=== PATIENT | female | born 1980 | race Caucasian/White ===

== ENCOUNTER 2017-01-29 20:17 | Emergency (ER) | payer MEDICAID ==
[2017-01-29 20:24] VITALS: BP 140/113
--- NOTE | 2017-01-29 20:48 | ERNOTE ---
Medical Problem HPI - Narrative Date of Service: 01/29/17 - General Chief Complaint: General Assessment Time Seen by Provider: 01/29/17 20:40 Source: patient Exam Limitations: no limitations - Immun/Allergies/Home Medications Immunizations: IMMUNIZATION HX Immunizations Up to Date Yes History of Influenza Vaccine No Hx Pneumococcal Vaccination No Allergies/Adverse Reactions: Allergies penicillin G Allergy (Intermediate, Verified 01/29/17 20:24) Hives Sulfa (Sulfonamide Antibiotics) Allergy (Intermediate, Verified 01/29/17 20:24) Hives codeine Adverse Reaction (Mild, Verified 01/29/17 20:24) Vomiting hydrocodone bitartrate [From Vicodin] Adverse Reaction (Mild, Verified 01/29/17 20:24) N/V Home Medications: HOME MEDICATIONS NK [No Home Medication] 01/29/17 [Last Taken Unknown] - History of Present History Narrative: 37-year-old female presents to the emergency room for a lump in her left breast. History of a lump in her right breast that she said she had removed many years ago. Date (Duration): 01/29/17 Timing: unsure Review of Systems - Review of Systems Constitutional: Present: no symptoms reported EYE: Present: no symptoms reported ENT: Present: no symptoms reported Respiratory: Present: no symptoms reported Cardiology: Present: no symptoms reported Gastrointestinal/Abdominal: Present: no symptoms reported Genitourinary: Present: no symptoms reported Musculoskeletal: Present: no symptoms reported Skin: Present: See HPI Neurological: Present: no symptoms reported Endocrine: Present: no symptoms reported Hematologic/Lymphatic: Present: no symptoms reported Psych: Present: no symptoms reported All Other Systems: All systems neg except as marked - Patient's Past Medical History Patient History - Medical: No pertinent hx Patient History - Cardiac/Respiratory: No pertinent hx Patient History - Cancer: Cervical Patient History - Surgical Procedures: Hysterectomy, T & A Patient History - Other: None - Social History Living Situations: significant other Psych History: No pertinent hx Smoking Status: Current every day smoker Alcohol Use: none Drug Use: none - Immunizations Immunizations Up to Date: Yes Hx Pneumococcal Vaccination: No History of Influenza Vaccine: No Physical Exam - Physical Exam Narrative: Lump Located about the 9 o'clock position on left breast. Measuring about 1-1/ 2 cm. It is soft and pliable no pain. No redness OR tenderness with manipulation. right breast WNL General Appearance: Present: wd/wn, alert, no apparent distress Eye Exam: Normal inspection: bilateral Ears, Nose, Throat: Present: normal ENT inspection, normal pharynx Neck: Present: normal inspection, nontender Respiratory: Present: no respiratory distress, normal breath sounds, no accessory muscle use, chest nontender, lungs clear. Absent: chest tenderness Cardiovascular/Chest: Present: regular rate, rhythm, no murmur, normal peripheral pulses Gastrointestinal/Abdominal: Present: normal bowel sounds, nontender, nondistended, soft, no organomegaly Back Exam: Present: normal inspection, normal range of motion, no CVA tenderness , no vertebral tenderness Extremity Exam: Present: normal inspection, non-tender, normal range of motion, no edema Neurological Exam: Present: alert, oriented, normal mood/affect, no motor/ sensory deficits Skin Exam: Present: normal color, warm/dry Lymphatic Exam: Present: no adenopathy ED Progress - Vital Signs Patient's Vital Signs:: I have reviewed the patient's vital signs. Vital Signs: Vital Signs 01/29/17 20:18 Temperature 36.7 C Pulse Rate 102 H Respiratory 18 Rate Blood Pressure 140/113 O2 Sat by Pulse 98 Oximetry - Progress/Reassessment Chief Complaint: General Assessment Progress:: Unchanged Plan - Plan Plan: She is to follow-up with her [employer] on Monday Departure - Departure Clinical Impression: Breast lump in female Disposition: Home Follow Up Needed Condition: Stable Instructions: Breast Self-Awareness, [id number] Additional Instructions: Continue any previous home medications as directed. Follow-up with your [employer] on Monday related to the lump in her left breast.
--- OUTSIDE RECORDS SUMMARY | 2017-01-29 20:56 | XMS REPORT | Continuity of Care Document ---
:1980 Author Organization [facility] ([facility]) Address [address] [place] [address] Phone [phone] Care Team Providers Name Role Phone Celestina Daniels Primary Care Provider [phone] Source Comments This disclosure is being made pursuant to the Care Everywhere program, applicable federal and state laws, and may not contain all informaitonavailable regarding this patient.[facility] ([facility]) Active Allergies and Adverse Reactions Allergen Noted Date Severity Reactions Comments Codeine 10/25/2009 Rash Penicillins 10/25/2009 Rash Sulfa (Sulfonamide Antibiotics) 10/25/2009 Rash Current Medications Prescription Sig. Disp. Refills Start Date End Date Status famotidine (PEPCID) 20 take 1 Tab by mouth 40 Tab 2 10/25/2009 Active mg tablet 2 times daily. 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[employer] Temperature 36.1 C (97 F) 10/25/2009 11:30 AM [employer]INE SERVICE OPERATOR Respiratory Rate 20 10/25/2009 8:30 AM [employer]INE SERV[employer] OPERATOR Height - - Weight - - Body Mass Index - - Oxygen Saturation - - Plan of Care Health Maintenance Due Date Last Done Comments Hepatitis B Vaccine (1 of 3 - Primary Series) 1982 Tdap Vaccine 1993 Lipid Disorder Screening 01/26/2000 MMR Vaccine 01/26/2000 Td Vaccine 01/26/2000 Varicella Vaccine (1 of 2 - Adult - No Evidence of 01/26/2000 Immunity) Pneumococcal Vaccine (1 of 1 - PPSV23) 2001 Cervical Cancer Screening 01/26/2012 Influenza Vaccine: Seasonal Completed Results from Last 3 Months Not on file
== END 2017-01-29 20:45 | disposition home or self-care (01) ==
LOC: ER 20:17
DX: N63 Unspecified lump in breast (principal); Z85.41 Personal history of malignant neoplasm of cervix uteri; F17.200 Nicotine dependence, unspecified, uncomplicated

== ENCOUNTER 2017-02-10 10:04 | Day surgery (SDC) | payer MEDICAID ==
[~2017-02-10 10:04] MED LIST: ACETAMINOPHEN 500 MG TABLET PO PRN; MAG HYDROX/ALUMINUM HYD/SIMETH 30 ML UDC PO PRN; MAGNESIUM HYDROXIDE 30 ML UDC PO PRN; ONDANSETRON HCL/PF 2 MG/ML VIAL IV PRN; PROMETHAZINE HCL 25 MG in DEXTROSE 5 % IN WATER 50 ML IV PRN; RINGERS SOLUTION,LACTATED 1,000 ML IV PRN; ROPIVACAINE HCL/PF 40 MG in NORMAL SALINE 16 ML IJ PRN; ZOLPIDEM TARTRATE 5 MG TABLET PO PRN; ceFAZolin SODIUM 1 GM VIAL IV PRN; diphenhydrAMINE HCL 50 MG/ML VIAL IV PRN; oxyCODONE HCL/ACETAMINOPHEN 1 TAB TABLET PO PRN
[2017-02-10] MEDS ORDERED: RINGERS SOLUTION,LACTATED 1,000 ML IV ONE (10:54)
[2017-02-10] MEDS ORDERED: BUPIVACAINE HCL/EPINEPHRINE 50 ML VIAL IJ ONE ×2 (12:35)
--- NOTE | 2017-02-10 13:13 | OR ---
Operative Report - Dictated Report Narrative: Date: 02/10/2017 Physician: Lisandro Vazquez M.D. Sewer System Supervisor: Tom Polanco PA-C Preoperative diagnosis: Right Knee patella osteochondral injury Postoperative diagnosis: Right Knee patella osteochondral injury, anterior medial plica Procedure: Right knee arthroscopy with microfracture of patella, excision of anterior medial plica Anesthesia: Gen. Plus local Complications: None Estimated blood loss: Minimal Tourniquet time: None Specimens: None Retained implants: None Drains: None Indications: Mrs. Merritt Is a 37 year-old female who has been followed in my clinic with complaints of knee pain consistent with suspected patella chondral pathology. Physical exam and diagnostic imaging were consistent with these complaints and concern for patella chondral injury pathology. Conservative measures have failed including, but not limited to, passage of time, activity modification, medications, and injections. The risks, benefits, and alternatives were discussed in clinic. The risks being , bleeding, infection, blood clots, nerve, tendon, ligament, blood vessel injury, persistent pain, arthrosis, need for additional procedures, and persistent symptoms. Consent was obtained in the clinic. Procedure: After marking the correct extremity in the preoperative holding area, a timeout was performed in the operating room. IV antibiotics consisting of Ancef were administered prior to the procedure. A well-padded tourniquet was applied to the operative upper thigh. The leg was prepped and draped in a standard sterile fashion. 0.5% Marcaine with epinephrine was infused into the projected portal sites as well as the intra-articular space. A madison incision was made for inferior lateral portal. A blunt trocar and cannula was introduced into the knee. The suprapatellar pouch revealed no pathology. The medial patella facet showed minimal arthrosis. The lateral patella facet showed a 1 cm focal defect at the apex of the patella consistent with her MRI. The trochlea showed no significant arthrosis. The medial gutter revealed a thick abrading anterior medial plica. The medial joint space was then entered utilizing a lateral post and valgus stress. A spinal needle was utilized for guidance into placement of an anterior medial portal. This was placed just superior to the medial meniscus ensuring that we could reach the posterior aspect of the medial joint space. A madison incision was made in the site, and the probe was introduced to the knee. The medial joint space was examined, and the medial femoral condyle showed no arthrosis. The medial tibial plateau showed no arthrosis. The medial meniscus no tear. The notch was then examined, and the ACL was noted to be intact. The PCL was noted to be intact. The lateral joint space was then examined using a varus force in the figure 4 position. Lateral femoral condyle showed no arthrosis. Lateral tibial plateau showed no arthrosis. The lateral meniscus showed no tear. The lateral gutter showed no pathology. Having identified the surgical pathology, a shaver was utilized in order to debride the anterior medial plica. Accessory medial portal was placed in order to use ring curettes to debride the loose chondral edges of the patella. This was down to stable margin. A microfracture awl was attempted to be utilized however due to the density of the bone this was not possible and thus a 0.62 smooth Indigo wire was utilized in order to make the microfracture holes and the patella. After this was performed there was noted blood and fat ingress from the microfracture holes. Once it was felt that we adequately addressed the pathology, the knee was thoroughly irrigated. The fluid was evacuated ensuring that we have removed all meniscal, chondral, and any other loose bodies. A final evaluation of the joint showed no additional pathology. The fluid was then evacuated of the knee, and the trocar and camera were removed from the joint. The wounds were closed with interrupted nylon after placing 20 mL of 0.2% ropivacaine into the joint. Dressings consisting of Xeroform, 4 x 4 , ABD, soft roll, and an Casey were applied. A knee immobilizer was then placed. All sponge, needle, blade, and instrument counts were correct prior to closing the wounds. The patient was awoken and transferred to the postanesthesia care unit in stable condition.
[2017-02-10 14:59] VITALS: BP 109/66
[2017-02-10] MEDS ORDERED: SENNOSIDES/DOCUSATE SODIUM 1 TAB TABLET PO SCH (21:00)
== END 2017-02-10 10:05 | disposition home or self-care (01) ==
LOC: AMB 10:04
PROVIDERS: ATTEND Orthopaedic Surgery
PROC: 0SQC4ZZ Repair Right Knee Joint, Percutaneous Endoscopic Approach (ICD-10-PCS; principal; 2017-02-10 12:45)
DX: M23.91 Unspecified internal derangement of right knee (principal); M94.261 Chondromalacia, right knee; I10 Essential (primary) hypertension; J45.909 Unspecified asthma, uncomplicated; K21.9 Gastro-esophageal reflux disease without esophagitis; F41.9 Anxiety disorder, unspecified; E66.01 Morbid (severe) obesity due to excess calories; Z68.35 Body mass index [BMI] 35.0-35.9, adult; F17.200 Nicotine dependence, unspecified, uncomplicated

== ENCOUNTER 2017-05-01 23:22 | Emergency (ER) | payer MEDICAID ==
--- NOTE | 2017-05-02 00:13 | ERNOTE ---
Lower Extremity HPI - General Lower Extremities Pain: knee: right Time Seen by Provider: 05/01/17 23:57 Source: patient Exam Limitations: no limitations - Immun/Allergies/Home Medications Immunizations: IMMUNIZATION HX Immunizations Up to Date Yes History of Influenza Vaccine No Hx Pneumococcal Vaccination No Allergies/Adverse Reactions: Allergies Allergy/AdvReac Type Severity Reaction Status Date / Time penicillin G Allergy Mild Hives Verified 02/10/17 10:23 Sulfa (Sulfonamide Allergy Mild Hives Verified 02/10/17 10:23 Antibiotics) codeine AdvReac Mild Vomiting Verified 02/10/17 10:23 hydrocodone bitartrate AdvReac Mild N/V Verified 02/10/17 10:23 [From Vicodin] Home Medications: HOME MEDICATIONS Ibuprofen [Motrin] 800 mg PO TID PRN 02/02/17 [Last Taken Unknown] oxyCODONE HCL/ACETAMINOPHEN [Percocet 5 MG/325 MG] 1 - 2 tab PO Q4H PRN #30 tab 02/10/17 [Last Taken Unknown] - History of Present Illness Narrative: Pt states she had a procedure on her patella and knee 2 months ago (02/10) and has had problems since. Five days ago she slipped getting out of the shower and has had increased swelling and pain since. Occurred: last week Location of Incident: home Method of Injury: Reports: twisted Reason for Fall: Reports: slipped Loss of Consciousness: Reports: no loss of consciousness Modifying Factors - (Worsens): Reports: movement Other Injuries: Reports: none Review of Systems - Review of Systems Constitutional: Present: no symptoms reported EYE: Present: no symptoms reported ENT: Present: no symptoms reported Respiratory: Present: no symptoms reported Cardiology: Present: no symptoms reported Gastrointestinal/Abdominal: Present: no symptoms reported Musculoskeletal: Present: See HPI. Absent: back pain Skin: Absent: rash, change in color Neurological: Absent: numbness, tingling Endocrine: Present: no symptoms reported Hematologic/Lymphatic: Present: no symptoms reported Psych: Present: no symptoms reported - Patient's Past Medical History Patient History - Medical: Anemia, Anxiety, GERD, Other Patient History - Cardiac/Respiratory: Hypertension, Other Patient History - Cancer: No Hx of Cancer Patient History - Surgical Procedures: D & C, Ear Tubes, Hysterectomy, T & A, Other - Knee arthroscopy Patient History - Other: None - Family History Father Family History - Medical: No pertinent hx Family History - Cardiac/Respiratory: Other Family History - Cancer: No pertinent family hx Mother Family History - Medical: No pertinent hx Family History - Cardiac/Respiratory: No pertinent hx Family History - Cancer: Breast Grandmother-Maternal Family History - Medical: Diabetes Type 2 Family History - Cardiac/Respiratory: No pertinent hx Family History - Cancer: No pertinent family hx - Social History Living Situations: home Abuse History: No History of abuse Psych History: Hx of Anxiety, Hx of Depression Smoking Status: Current every day smoker Patient requests Smoking Cessation Consult: No Initiate information on Smoking Cessation: No Alcohol Use: none Drug Use: other - Immunizations Immunizations Up to Date: Yes Hx Pneumococcal Vaccination: No History of Influenza Vaccine: No Physical Exam - Physical Exam General Appearance: Present: wd/wn, alert, no apparent distress Head Exam: Present: normal inspection, no evidence of injury Extremity Exam: Present: joint swelling - right knee mild-moderate. Patella is difficult to palpate. Absent: calf tenderness, bony tenderness, joint redness Neurological Exam: Present: alert, oriented, normal mood/affect Skin Exam: Present: normal color, warm/dry ED Progress - Vital Signs Patient's Vital Signs:: I have reviewed the patient's vital signs. Vital Signs: Vital Signs 05/01/17 23:27 Temperature 36.8 C Pulse Rate 120 H Respiratory 20 Rate Blood Pressure 140/81 O2 Sat by Pulse 98 Oximetry - X-Ray X-Ray #1 X-Ray: knee Interpretation: Interp. by me X-ray Comments: No fracture or dislocation noted. - Progress/Reassessment Chief Complaint: Lower Extremity Pain/ Injury Progress Note-Subjective: 05/02/17 00:48 Spoke with [facility]. He is familiar with the patient and was in her surgery. He agrees with my suggestion that I aspirate the knee and inject depo-medrol. She will follow up there as needed. Procedures Right Knee Date and Time: 05/02/17 01:19 Right knee aspiration and injection Anesthesia: 1% Lidocaine, Local I & D Prep: betadine prep Findings and Actions: other - superior lateral knee was prepped and 1 mL of 1% lidocaine was injected subcutaneously and in a track down to the suprapatellar pouch. Pt tightened up and had difficulty during the injection of lidocaine. 5 minutes was allowed to pass before an 18 G needle was used under sterile techinque to pass along the same track to the suprapatellar pouch. Minimal straw colored fluid was noted but patient again tightened up and had difficulty holding still. I tried repositioning to aspirate more fluid but pt did not tolerate repositioning well. Leaving the needle in what seemed to be the suprapatellar pouch. Needle was left in place and I then switched syringes and injected 40 depomedrol, 1 mL 1% lidocaine and 1mL 0.5% bupivicaine. The solution injected easily without resistance and the needle was removed. Pt tolerated as described above. Estimated blood loss (ml): 1 Complications: other - No complications Departure Clinical Impression: Knee effusion, right - Departure Disposition: Home Follow Up Needed Condition: Good Instructions: Knee Effusion, [id number] Additional Instructions: See Dr. Vazquez or Tom Polanco in orthopedics as scheduled or within the next week if not improving Referrals: Lisandro Vazquez MD [Primary Care Provider] -
[2017-05-02] MEDS ORDERED: METHYLPREDNISOLONE ACETATE 80 MG/ML VIAL ONE (00:51)
[2017-05-02] MEDS ORDERED: BUPIVACAINE HCL 50 ML VIAL ONE (00:53)
[2017-05-02] MEDS ORDERED: KETOROLAC TROMETHAMINE 60 MG/2 ML VIAL IM ONE ×2 (01:24→01:25)
[2017-05-02 01:37] VITALS: BP 130/82
== END 2017-05-02 01:36 | disposition home or self-care (01) ==
LOC: ER 23:22
PROC: 3E0U33Z Introduction of Anti-inflammatory into Joints, Percutaneous Approach (ICD-10-PCS; principal; 2017-05-01)
PROC: 3E0U3BZ Introduction of Anesthetic Agent into Joints, Percutaneous Approach (ICD-10-PCS; 2017-05-01)
DX: M25.461 Effusion, right knee (principal); F17.200 Nicotine dependence, unspecified, uncomplicated